=== PATIENT | female | born 1965 | race Asian ===

== ENCOUNTER 2022-12-22 20:24 | Emergency (ER) | payer OTHER ==
[~2022-12-22] VITALS: Ht 154.9 cm; Wt 61.2 kg
[2022-12-22 20:33] VITALS: BP 161/98; PULSE 82; RESP 18; TEMP 97.7; O2SAT 97
== END 2022-12-22 21:40 | disposition left against medical advice (07) ==
LOC: MED 20:24
DX: R53.1 Weakness (principal); T50.995A Adverse effect of other drugs, medicaments and biological substances, initial encounter; Z53.21 Procedure and treatment not carried out due to patient leaving prior to being seen by health care provider; Y92.89 Other specified places as the place of occurrence of the external cause
CPT/HCPCS: 99281